=== PATIENT | female | born 1985 | race African-American/Black ===

== ENCOUNTER 2024-03-13 14:50 | Emergency (ER) | payer OTHER ==
[~2024-03-13] VITALS: Ht 172.7 cm; Wt 132.0 kg
[2024-03-13 15:45] VITALS: PULSE 59; RESP 18; TEMP 98
[2024-03-13] MEDS: ONDANSETRON HCL INJ 2MG/ML 2ML 2 MG/ML VIAL IV STA (16:17)
[2024-03-13] MEDS: KETOROLAC TROMETHAMINE 30 MG/ML VIAL IV STA (16:20)
[2024-03-13 17:03] LABS: BASOPHILS % 0.9 % (0.0-1.0); EOSINOPHILS # (AUTO) 0.1 (0.0-0.4); EOSINOPHILS % 3.1 % (0.0-6.0); HEMATOCRIT 44.7 % (34.2-44.1); HEMOGLOBIN 13.9 g/dL (12.0-16.0); LYMPHOCYTES # (AUTO) 2.1 (1.0-3.2); LYMPHOCYTES % 46.1 % (18.0-39.1); MEAN CORPUSCULAR HEMOGLOBIN 30.2 pg (28-32); MEAN CORPUSCULAR HGB CONC 31.1 g/dL (31-35); MONOCYTES # (AUTO) 0.4 (0.2-0.8); NEUTROPHILS # (AUTO) 1.9 (2.1-6.9); NEUTROPHILS % 41.7 % (38.7-80.0); PLATELET COUNT 285 x10e3/uL (140-360); RED BLOOD COUNT 4.61 x10e6/uL (3.6-5.1); WHITE BLOOD COUNT 4.51 x10e3/uL (4.8-10.8)
[2024-03-13] MEDS: SODIUM CHLORIDE 0.9% 1000ML 1,000 ML IV STA (17:18)
[2024-03-13 17:38] LABS: ALANINE AMINOTRANSFERASE 14 IU/L (0-55); ALBUMIN 3.7 g/dL (3.5-5.0); ALBUMIN/GLOBULIN RATIO 1.1 (0.8-2.0); ALKALINE PHOSPHATASE 58 IU/L (40-150); BILIRUBIN,TOTAL 0.7 mg/dL (0.2-1.2); BLOOD UREA NITROGEN 16 mg/dL (7-26); BUN/CREATININE RATIO 21 (6-25); CALCIUM 9.5 mg/dL (8.4-10.2); CARBON DIOXIDE 22 mmol/L (22-29); CHLORIDE 106 mmol/L (98-107); CREATINE KINASE 73 IU/L (29-168); CREATININE, SERUM 0.76 mg/dL (0.57-1.11); EST GLOMERULAR FILTRATION RATE 103 ML/MIN (>=60); GLUCOSE 79 mg/dL (74-118); MAGNESIUM 1.7 MG/DL (1.3-2.1); SODIUM 139 mmol/L (136-145); TOTAL PROTEIN 7.1 g/dL (6.5-8.1)
[2024-03-13 17:40] LABS: INR 1.01; PROTHROMBIN TIME 13.9 seconds (11.9-14.5)
[2024-03-13 17:41] LABS: PARTIAL THROMBOPLASTIN TIME 29.9 seconds (23.8-35.5)
[2024-03-13 17:44] LABS: INFLUENZA A AG NEGATIVE (NEGATIVE); INFLUENZA B AG NEGATIVE (NEGATIVE)
[2024-03-13 17:45] LABS: CORONAVIRUS COVID-19 AG NEGATIVE (NEGATIVE)
[2024-03-13 17:46] LABS: TROPONIN I < 0.001 ng/mL (0-0.300)
[2024-03-13] MEDS ORDERED: FIORICET 50-301 EACH PO (18:53)
[2024-03-13] MEDS ORDERED: ONDANSETRON ODT4 MG PO (18:53)
[2024-03-13] MEDS: ACETAMIN/BUTALBITAL/CAFFEINE TAB PO ONE (18:54)
[2024-03-13 19:21] VITALS: BP 129/74; PULSE 56; RESP 16; O2SAT 100
== END 2024-03-13 19:00 | disposition home or self-care (01) ==
LOC: ER 15:59
DX: R05.9 Cough, unspecified (principal); R07.89 Other chest pain; B34.9 Viral infection, unspecified; J45.909 Unspecified asthma, uncomplicated; F41.9 Anxiety disorder, unspecified; M25.562 Pain in left knee
CPT/HCPCS: 36415; 71045; 80053; 82550; 83735; 83880; 84484; 85025; 85379; 85610; 85730; 93005; 99284; J1885; J2405; J7030

== ENCOUNTER 2024-04-03 17:47 | Emergency (ER) | payer OTHER ==
[~2024-04-03] VITALS: Ht 172.7 cm; Wt 136.1 kg
[~2024-04-03 17:47] MED LIST: FIORICET 50-301 EACH PO; ONDANSETRON ODT4 MG PO
[2024-04-03] MEDS ORDERED: DEXAMETHASONE SOD PHOS 10 MG/1 ML VIAL IM ONE (18:30)
[2024-04-03] MEDS: KETOROLAC TROMETHAMINE 60 MG/2 ML VIAL IM ONE (18:32)
[2024-04-03] MEDS: DEXAMETHASONE SOD PHOS INJ 4 MG/ML SDV IM ONE (18:32)
[2024-04-03] MEDS: ACETAMINOPHEN 325 MG TAB PO ONE (18:33)
[2024-04-03 18:56] VITALS: PULSE 89; RESP 18; TEMP 99.7; O2SAT 98
== END 2024-04-03 19:06 | disposition home or self-care (01) ==
LOC: FSED 17:51
DX: R50.9 Fever, unspecified (principal); B34.9 Viral infection, unspecified; R05.9 Cough, unspecified; J45.909 Unspecified asthma, uncomplicated; G47.00 Insomnia, unspecified; R53.81 Other malaise; F41.9 Anxiety disorder, unspecified; F32.A Depression, unspecified
CPT/HCPCS: 0223U; 87400; 96372; 99283; J1100; J1885

== ENCOUNTER 2024-06-19 20:53 | Emergency (ER) | payer MEDICARE, OTHER ==
[~2024-06-19] VITALS: Ht 172.7 cm; Wt 130.6 kg
[2024-06-20] MEDS ORDERED: CYCLOBENZAPRINE5 MG PO (00:15)
[2024-06-20 00:25] VITALS: PULSE 60; RESP 16; TEMP 97.7
[2024-06-20 00:31] VITALS: BP 119/79; PULSE 60; RESP 16; TEMP 97.7; O2SAT 98
== END 2024-06-20 00:34 | disposition home or self-care (01) ==
LOC: FSED 20:59
DX: M79.662 Pain in left lower leg (principal); M79.18 Myalgia, other site; J45.909 Unspecified asthma, uncomplicated; G47.00 Insomnia, unspecified; F41.9 Anxiety disorder, unspecified; F32.A Depression, unspecified
CPT/HCPCS: 93970; 93971; 99284

== ENCOUNTER 2024-08-22 19:48 | Emergency (ER) | payer OTHER ==
[~2024-08-22] VITALS: Ht 172.7 cm; Wt 136.1 kg
[~2024-08-22 19:48] MED LIST changes: +CYCLOBENZAPRINE5 MG PO
[2024-08-22 19:50] VITALS: TEMP 97.3
[2024-08-22] MEDS: ACETAMINOPHEN 325 MG TAB PO ONE (20:40)
[2024-08-22] MEDS: FAMOTIDINE 20 MG/2 ML VIAL IV ONE (20:40)
[2024-08-22] MEDS: SODIUM CHLORIDE 0.9% 500ML 500 ML IV STA (20:41)
[2024-08-22] MEDS: KETOROLAC TROMETHAMINE 30 MG/ML VIAL IV ONE (20:41)
[2024-08-22] MEDS ORDERED: LORAZEPAM 1 MG TAB PO ONE (20:45)
[2024-08-22] MEDS: LORAZEPAM 0.5 MG TAB PO ONE (20:50)
[2024-08-22 21:13] VITALS: PULSE 63; RESP 18
[2024-08-22 21:35] VITALS: BP 124/68; PULSE 64; RESP 18; TEMP 97.3; O2SAT 100
== END 2024-08-22 21:35 | disposition home or self-care (01) ==
LOC: FSED 19:50
DX: R07.89 Other chest pain (principal); R10.13 Epigastric pain; F41.9 Anxiety disorder, unspecified; J45.909 Unspecified asthma, uncomplicated; E66.9 Obesity, unspecified; R94.31 Abnormal electrocardiogram [ECG] [EKG]
CPT/HCPCS: 71046; 80053; 81003; 84484; 85025; 85379; 93005; 99283; J1308; J1885; J7040

== ENCOUNTER 2024-08-25 15:18 | Emergency (ER) | payer OTHER ==
[~2024-08-25] VITALS: Ht 172.7 cm; Wt 133.1 kg
[2024-08-25] MEDS: LACTATED RINGER'S 1,000 ML INJ ONE (15:51)
[2024-08-25] MEDS: FAMOTIDINE 20 MG/2 ML VIAL IV ONE (15:51)
[2024-08-25] MEDS: ONDANSETRON HCL INJ 2MG/ML 2ML 2 MG/ML VIAL IV ONE (15:52)
[2024-08-25] MEDS: KETOROLAC TROMETHAMINE 30 MG/ML VIAL IV ONE (15:52)
[2024-08-25 16:04] VITALS: PULSE 66; RESP 20; TEMP 97.7
[2024-08-25] MEDS ORDERED: ONDANSETRON ODT4 MG PO (17:15)
[2024-08-25] MEDS ORDERED: FAMOTIDINE20 MG PO (17:15)
[2024-08-25] MEDS ORDERED: MAALOX MAXIMUM355 ML PO (17:15)
[2024-08-25 17:31] VITALS: BP 126/70; PULSE 60; RESP 18; TEMP 97.9; O2SAT 100
== END 2024-08-25 17:28 | disposition home or self-care (01) ==
LOC: FSED 15:44
DX: R11.2 Nausea with vomiting, unspecified (principal); K52.9 Noninfective gastroenteritis and colitis, unspecified; E86.0 Dehydration; J45.909 Unspecified asthma, uncomplicated; F41.9 Anxiety disorder, unspecified; E66.9 Obesity, unspecified
CPT/HCPCS: 74176; 80048; 80076; 81003; 85025; 99283; J1308; J1885; J2405; J7121